=== PATIENT | female | born 1955 | race Two or more races ===

== ENCOUNTER 2017-05-14 19:33 | Emergency (ER) | payer SELFPAY ==
[~2017-05-14] VITALS: Ht 162.6 cm; Wt 64.9 kg
[~2017-05-14 19:33] MED LIST: ALBU8.5H3 INH; ATOR20TA38 PO; DIPH25CA6 PO; GABA100C14 PO; HYDR-762 PO; LISI20TA11 PO; MELO-210 PO; METF1000 PO; PARO-37 PO
[2017-05-14 19:37] VITALS: Ht 162.6 cm; Wt 64.9 kg
[2017-05-14 20:28] VITALS: BP 134/68; PULSE 72; RESP 16
== END 2017-05-14 20:28 | disposition left against medical advice (07) ==
LOC: E/R 19:33
DX: Z53.21 Procedure and treatment not carried out due to patient leaving prior to being seen by health care provider (principal)
CPT/HCPCS: 93005